=== PATIENT | female | born 1960 | race Caucasian/White ===

== ENCOUNTER 2021-05-29 06:04 | Observation (INO) ==
[~2021-05-29 06:04] MED LIST: Buffered Lidocaine 1% SYRIN 1 ml INTRADERM ONE; Famotidine IV 10 MG/ML 2 ml VIAL (20 mg) IV ONE; Lactated Ringers 1000 ml BAG 1,000 ML IV SCH
[2021-05-29] MEDS ORDERED: Famotidine IV 10 MG/ML 2 ml VIAL (20 mg) ONE (06:43)
[2021-05-29] MEDS ORDERED: ceFAZolin 2 GM in NS PREMIX 2 GM/100 ML BAG IVPB ONE (06:43)
[2021-05-29] MEDS ORDERED: Propofol 10 MG/ML 20 ML BTL ONE ×2 (06:43)
[2021-05-29] MEDS ORDERED: Phenylephrine IV 10 MG/ML 1 ml VIAL ONE (06:44)
[2021-05-29] MEDS ORDERED: Lidocaine 2% PF 5 ML VIAL ONE (06:44)
[2021-05-29] MEDS ORDERED: Remifentanil 2 MG VIAL ONE (06:51)
[2021-05-29] MEDS ORDERED: fentaNYL 250 mcg/5 ml 50 MCG/ML 5 ml VIAL (250 MCG) ONE (06:52)
[2021-05-29] MEDS ORDERED: Midazolam 5 mg/5 ml VIAL 1 mg/ml 5 ml VIAL (5 mg) ONE (07:00)
[2021-05-29] MEDS ORDERED: Bupivacaine 0.25% SDV 30 ML ONE (07:08)
[2021-05-29] MEDS ORDERED: Bupivacaine 0.25% SDV PF 10 ML VIAL INJ ONE (07:08)
[2021-05-29] MEDS ORDERED: ceFAZolin VIAL VIAL ONE ×3 (07:08→11:42)
[2021-05-29] MEDS ORDERED: Rocuronium 50 mg VIAL 10 mg/ml 5 ml VIAL (50 mg) ONE (07:47)
[2021-05-29] MEDS ORDERED: Succinylcholine 200 mg VIAL 20 mg/ml 10 ml VIAL (200 mg) ONE (07:47)
[2021-05-29] MEDS ORDERED: Artificial Tear OPHTH.OINT 3.5 GM ONE (07:57)
[2021-05-29] MEDS ORDERED: BUPIVACAINE **LIPOSOME/PF 13.3 MG/ML (266MG/ 20ML) VIAL (RESTRICTED) INFIL ONE (08:00)
[2021-05-29] MEDS ORDERED: Ondansetron 4 mg VIAL 2 MG/ML 2 ml VIAL IV PRN ×2 (08:07→12:56)
[2021-05-29] MEDS ORDERED: DiMENhydriNATE IV 50 mg/ml 1 ml VIAL IV PUSH PRN (08:07)
[2021-05-29] MEDS ORDERED: Naloxone 0.4 mg VIAL 0.4 mg/ml 1 ml VIAL IV PRN (08:07)
[2021-05-29] MEDS ORDERED: fentaNYL 100 mcg/2 ml 50 MCG/ML VIAL IV PRN (08:07)
[2021-05-29] MEDS ORDERED: Glycopyrrolate IV 0.2 MG/ML 1 ML VIAL ONE (08:30)
[2021-05-29] MEDS ORDERED: Dexamethasone IV 4 MG/ML VIAL 1 ml VIAL ONE (08:31)
[2021-05-29] MEDS ORDERED: Ondansetron 4 mg VIAL 2 MG/ML 2 ml VIAL ONE (08:31)
[2021-05-29] MEDS ORDERED: Sevoflurane BOTTLE ONE (09:03)
[2021-05-29] MEDS ORDERED: Propofol 10 mg/ml 100 ML BTL 100 ML ONE (09:05)
[2021-05-29] MEDS ORDERED: Acetaminophen IV 1 GM/100ML 100 ML IV ONE ×2 (12:31→12:35)
[2021-05-29] MEDS: HYDROmorphone 0.5 MG/0.5 ML SYRINGE IV SLOW PU PRN ×3 (12:53→13:26)
[2021-05-29] MEDS ORDERED: HYDROmorphone 1 MG/1 ML SYRINGE ONE ×2 (12:53→13:21)
[2021-05-29] MEDS ORDERED: Magnesium Hydroxide LIQ 30 ML UDC PO PRN (18:32)
[2021-05-29] MEDS ORDERED: Senna TAB 8.6 mg TAB PO PRN (18:32)
[2021-05-29] MEDS ORDERED: HYDROmorphone 1 MG/1 ML SYRINGE IV SLOW PU PRN (18:32)
[2021-05-30] MEDS ORDERED: Flu vaccine *QUAD* 2021-22* 0.5 ML SYRINGE IM ONE (09:00)
[2021-05-30 10:50] VITALS: BP 119/82
== END 2021-05-30 16:10 | disposition home or self-care (01) ==
LOC: INTOOBSV 06:04 → AA 06:04 → SSU 14:14
PROVIDERS: ADMIT Neurological Surgery; ATTEND Neurological Surgery